=== PATIENT | female | born 1980 | race Two or more races ===

== ENCOUNTER 2016-10-17 05:49 | Inpatient (IN) | payer SELFPAY ==
[~2016-10-17] VITALS: Ht 160 cm; Wt 84.4 kg
[2016-10-17] MEDS ORDERED: FENTANYL PF 100 MCG/2 ML VIAL. IV PRN (06:15)
[2016-10-17] MEDS ORDERED: ONDANSETRON PF 4 MG/2 ML VIAL. IV PRN (06:15)
[2016-10-17] MEDS ORDERED: 0.9 % SODIUM CHLORIDE 10 ML DISP.SYRIN. IV PRN ×2 (06:15→16:00)
[2016-10-17] MEDS ORDERED: TERBUTALINE 1 MG/ML VIAL. SQ PRN (06:15)
[2016-10-17] MEDS ORDERED: ACETAMINOPHEN 325 MG TABLET. PO PRN ×2 (06:15→16:00)
[2016-10-17] MEDS ORDERED: LIDOCAINE 1% PF 30 ML VIAL. INJ PRN (06:15)
[2016-10-17] MEDS ORDERED: BUTORPHANOL 2 MG/ML VIAL. IV PRN (06:15)
[2016-10-17] MEDS ORDERED: OXYTOCIN 30 UNIT/500 ML PREMIX 500 ML IV PRN ×3 (06:15→16:00)
[2016-10-17] MEDS ORDERED: IBUPROFEN 600 MG TABLET. PO PRN (06:15)
[2016-10-17 07:15] LABS: BASO % 0 % (0-3); EOS % 1 % (0-3); HEMATOCRIT 36.8 % (36.0-47.0); LYMPH # 1.8 x10^3/uL (1.0-4.8); LYMPH % 21 % (24-48); MEAN CORPUSCULAR HEMOGLOBIN 30 pg (25-35); MEAN CORPUSCULAR HGB CONC 33 g/dL (31-37); MEAN CORPUSCULAR VOLUME 92 fL (79-100); MONO % 6 % (0-9); NEUT % 72 % (31-73); PLATELET COUNT 209 x10^3/uL (140-400); RED CELL DISTRIBUTION WIDTH 14.6 % (11.5-14.5); WHITE BLOOD COUNT 8.7 x10^3/uL (4.0-11.0)
[2016-10-17] MEDS ORDERED: PNV1TABL25 PO (08:05)
[2016-10-17] MEDS: IV RINGERS,LACTATED 1000ML 1,000 ML IV SCH ×2 (08:06→14:28)
[2016-10-17 09:53] LABS: % EOS 1 % (0-5)
[2016-10-17 09:54] LABS: PLT ESTIMATE ADEQUATE (ADEQUATE)
--- NOTE | 2016-10-17 15:46 | PDOC ---
VAGINAL DELIVERY DATE DATE: 10/17/16 TIME: 15:44 : 5 Para: 5 EGA: 39 VAGINAL DELIVERY: VTX VACCUM ASSISTED: No PLACENTA: Spontaneous 04/01 SEX: Male WEIGHT Weight [3140 gm ] Nuchal Cord: No Amniotic Fluid: Clear PAIN: Natural EPISIOTOMY: No EXTENSION: No EBL 500 ml COMPLICATIONS placental abruption 10% CONDITION pt. stable Signs of Intrauterine Infectio: None Shoulder Dystocia: No Problems: OBED MENDEZ Jr, MD Oct 17, 2016 15:46
[2016-10-17] MEDS ORDERED: HYDROCORTISONE 1% TOPICAL OINTMENT 30GM TUBE. TP PRN (16:00)
[2016-10-17] MEDS ORDERED: DIPHENHYDRAMINE HCL 25 MG CAPSULE PO PRN (16:00)
[2016-10-17] MEDS ORDERED: ZOLPIDEM 5 MG TABLET. PO PRN (16:00)
[2016-10-17] MEDS ORDERED: PHENYLEPH/MINERAL OIL/PETROLAT RECTAL OINTMENT 28GM TUBE. RC PRN (16:00)
[2016-10-17] MEDS ORDERED: SIMETHICONE 80 MG TAB.CHEW PO PRN (16:00)
[2016-10-17] MEDS ORDERED: MAG HYDROX/ALUMINUM HYD/SIMETH 30 ML ORAL.SUSP PO PRN (16:00)
[2016-10-17] MEDS ORDERED: DOCUSATE SODIUM 100 MG CAPSULE. PO PRN (16:00)
[2016-10-17] MEDS ORDERED: OXYCODONE/APAP 5/325 TABLET. PO PRN (16:00)
[2016-10-17] MEDS ORDERED: MMR per PROTOCOL. MC PRN (16:00)
[2016-10-17] MEDS ORDERED: MAGNESIUM HYDROXIDE 2,400 MG/30 ML ORAL.SUSP. PO PRN (16:00)
[2016-10-17] MEDS ORDERED: BENZOCAINE 20% TOPICAL AEROSOL SPRAY 57GM CAN. TP PRN (16:00)
[2016-10-17] MEDS: IBUPROFEN 800 MG TABLET. PO PRN (18:34)
[2016-10-17 21:11] VITALS: BP 90/55
[2016-10-17 23:09] VITALS: BP 108/61
[2016-10-18 01:30] VITALS: BP 91/52
[2016-10-18] MEDS: IBUPROFEN 800 MG TABLET. PO PRN ×3 (05:01→23:18)
[2016-10-18 05:10] VITALS: BP 96/61
[2016-10-18 05:14] LABS: BASO % 0 % (0-3); EOS % 1 % (0-3); HEMATOCRIT 30.1 % (36.0-47.0); HEMOGLOBIN 9.9 g/dL (12.0-15.5); LYMPH # 2.6 x10^3/uL (1.0-4.8); LYMPH % 18 % (24-48); MEAN CORPUSCULAR HEMOGLOBIN 30 pg (25-35); MEAN CORPUSCULAR HGB CONC 33 g/dL (31-37); MEAN CORPUSCULAR VOLUME 91 fL (79-100); MONO % 7 % (0-9); NEUT % 75 % (31-73); PLATELET COUNT 187 x10^3/uL (140-400); RED CELL DISTRIBUTION WIDTH 14.6 % (11.5-14.5); WHITE BLOOD COUNT 14.9 x10^3/uL (4.0-11.0)
[2016-10-18] MEDS ORDERED: FERROUS SULFATE 325 MG TABLET PO SCH (08:00)
[2016-10-18 12:58] VITALS: BP 93/59
[2016-10-18 17:26] VITALS: BP 96/56
--- NOTE | 2016-10-18 20:01 | PDOC ---
Provider Note Provider Note No complaints VSS Uterus NTT FU in AM Vital Sign - Last 24 Hours 10/17/16 10/17/16 10/18/16 10/18/16 21:11 23:09 01:30 05:10 Temp 98.0 98.3 98.1 98.5 98.0 98.3 98.1 98.5 Pulse 70 72 70 72 Resp 20 20 20 20 B/P 90/55 108/61 91/52 96/61 O2 Delivery Room Air Room Air Room Air Room Air 10/18/16 10/18/16 12:58 17:26 Temp 98.7 98.3 98.7 98.3 Pulse 77 75 Resp 18 18 B/P 93/59 96/56 Pulse Ox 98 98 O2 Delivery Room Air Room Air PAULA VELA MD Oct 18, 2016 20:01
[2016-10-18 23:10] VITALS: BP 111/66
[2016-10-19 05:00] VITALS: BP 100/66
[2016-10-19] MEDS: IBUPROFEN 800 MG TABLET. PO PRN (09:02)
[2016-10-19 11:06] VITALS: BP 93/60
[2016-10-19 15:25] VITALS: BP 110/67
--- NOTE | 2016-10-19 18:18 | PDOC ---
OB Progress Note Date of Service 10/19/16 Time of Evaluation 1814 Notes Pt. feeling well. No complaints. Lab Laboratory Tests Test 10/18/16 04:55 White Blood Count 14.9x10^3/uL (4.0-11.0) Red Blood Count 3.30x10^6/uL (3.50-5.40) Hemoglobin 9.9g/dL (12.0-15.5) Hematocrit 30.1% (36.0-47.0) Mean Corpuscular Volume 91fL (79-100) Mean Corpuscular Hemoglobin 30pg (25-35) Mean Corpuscular Hemoglobin Concent 33g/dL (31-37) Red Cell Distribution Width 14.6% (11.5-14.5) Platelet Count 187x10^3/uL (140-400) Neutrophils (%) (Auto) 75% (31-73) Lymphocytes (%) (Auto) 18% (24-48) Monocytes (%) (Auto) 7% (0-9) Eosinophils (%) (Auto) 1% (0-3) Basophils (%) (Auto) 0% (0-3) Neutrophils # (Auto) 11.1x10^3uL (1.8-7.7) Lymphocytes # (Auto) 2.6x10^3/uL (1.0-4.8) Monocytes # (Auto) 1.0x10^3/uL (0.0-1.1) Eosinophils # (Auto) 0.1x10^3/uL (0.0-0.7) Basophils # (Auto) 0.0x10^3/uL (0.0-0.2) Medications Current Medications Sodium Chloride 3 ml 3 ml QSHIFT PRN IV AFTER MEDS AND BLOOD DRAWS; Start 10/17 at 06:15; Stop 10/18/16 at 07:56; Status DC Lactated Ringer's (Iv Lactated Ringers) 1,000 ml @ 125 mls/hr Q8H IV Last administered on 10/17/16 14:28; Start 10/17/16 at 06:15; Stop 10/18/16 at 07:56 ; Status DC Butorphanol Tartrate (Stadol) 2 mg PRN Q1HR PRN IV Severe labor pain Last administered on 10/17/16 15:57; Start 10/17/16 at 06:15; Stop 10/18/16 at 07:56 ; Status DC Fentanyl Citrate (Fentanyl 2ml Vial) 100 mcg PRN Q20MIN PRN IV Labor pain; Start 10/17/16 at 06:15; Stop 10/18/16 at 07:56; Status DC Acetaminophen (Tylenol) 650 mg PRN Q6HRS PRN PO MILD PAIN / TEMP; Start at 06:15 Ondansetron HCl (Zofran) 4 mg PRN Q4HRS PRN IV NAUSEA/VOMITING; Start 10/17/16 at 06:15; Stop 10/18/16 at 07:56; Status DC Terbutaline Sulfate (Brethine) 0.25 mg 1X PRN PRN SQ SEE COMMENTS; Start at 06:15; Stop 10/18/16 at 06:14; Status DC Lidocaine HCl 30 ml 30 ml 1X PRN PRN INJ SEE COMMENTS; Start 10/17/16 at 06:15 ; Stop 10/18/16 at 07:56; Status DC Oxytocin/Sodium Chloride 500 ml @ 0 mls/hr CONT PRN IV SEE I/O RECORD Last administered on 10/17/16 08:07; Start 10/17/16 at 06:15; Stop 10/18/16 at 07:56 ; Status DC Oxytocin/Sodium Chloride (Oxytocin Premix Infusion) 500 ml @ 0 mls/hr CONT PRN PRN IV Post delivery bleeding Last administered on 10/17/16 15:59; Start at 06:15; Stop 10/18/16 at 07:56; Status DC Ibuprofen (Motrin) 600 mg PRN Q6HRS PRN PO PAIN; Start 10/17/16 at 06:15 Sodium Chloride 10 ml 10 ml QSHIFT PRN IV AFTER MEDS AND BLOOD DRAWS; Start at 16:00; Stop 10/18/16 at 07:56; Status DC Oxytocin/Sodium Chloride (Oxytocin Premix Infusion) 500 ml @ 62.5 mls/hr CONT PRN IV SEE I/O RECORD; Start 10/17/16 at 16:00; Stop 10/17/16 at 23:59; Status DC Acetaminophen (Tylenol) 650 mg PRN Q6HRS PRN PO MILD PAIN / TEMP; Start at 16:00 Ibuprofen (Motrin) 800 mg PRN Q8HRS PRN PO INFLAMMATION/PAIN PREVENTION Last administered on 10/19/16 09:02; Start 10/17/16 at 16:00 Docusate Sodium (Colace) 100 mg PRN BID PRN PO CONSTIPATION Last administered on 10/19/16 09:02; Start 10/17/16 at 16:00 Magnesium Hydroxide (Milk Of Magnesia) 2,400 mg PRN DAILY PRN PO CONSTIPATION; Start 10/17/16 at 16:00 Al Hydroxide/Mg Hydroxide (Mylanta Plus Xs) 30 ml PRN Q4HRS PRN PO HEARTBURN / GAS; Start 10/17/16 at 16:00 Simethicone (Gas-X) 80 mg PRN AFTMEALHC PRN PO GAS / BLOATING; Start 10/17/16 at 16:00 Diphenhydramine HCl (Benadryl) 25 mg PRN Q6HRS PRN PO ITCHING; Start 10/17/16 at 16:00 Benzocaine (Americaine) 1 spray PRN QID PRN TP TOPICAL PAIN; Start 10/17/16 at 16:00 Phenyleph/Shark Oil/Min Oil/Petrol (Preparation H) 1 galen PRN QID PRN RC RECTAL PAIN; Start 10/17/16 at 16:00 Hydrocortisone (Cortaid) 1 galen PRN QID PRN TP PERINEAL PAIN; Start 10/17/16 at 16:00 Ferrous Sulfate (Feosol) 325 mg BIDWMEALS PO ; Start 10/18/16 at 08:00; Stop at 12:28; Status DC Zolpidem Tartrate (Ambien) 5 mg PRN QHS PRN PO INSOMNIA, MAY REPEAT X1; Start 10/17/16 at 16:00 Info (Do NOT chart on this placeholder) 1 ea 1X PRN PRN MC SEE COMMENTS; Start 10/17/16 at 16:00; Stop 10/18/16 at 07:56; Status DC Info (Do NOT chart on this placeholder) 1 ea 1X PRN PRN MC SEE COMMENTS; Start 10/17/16 at 16:00; Stop 10/18/16 at 07:56; Status DC Oxycodone/ Acetaminophen (Percocet 5/325) 2 tab PRN Q4HRS PRN PO MODERATE PAIN , SEVERE PAIN; Start 10/17/16 at 16:00 Active Scripts Active Reported Tablet (Pnv Cmb#95/Ferrous Fumarate/Fa) 1 Each Tablet 1 Tab PO DAILY Exam Abd: soft, non tender, fundus firm Assessment PPD#2 s/p Plan of Care: See new orders (D/c home.) OBED MENDEZ Jr, MD Oct 19, 2016 18:17
--- NOTE | 2016-10-19 18:18 | DISCH ---
DISCHARGE INSTRUCTIONS Condition on Discharge Condition on Discharge: Stable Activity After Discharge Activity Instructions for Disc: Activity as tolerated Lifting Instructions after Dis: No heavy lifting Driving Instructions after Dis: Do not drive today Diet after Discharge Diet Texture: Regular Contacting the [facility] after DC Call your doctor for: Concerns you may have Follow-Up Follow up with: Tam in 6 weeks. OBED MENDEZ Jr, MD Oct 19, 2016 18:18
[2016-10-19 18:50] VITALS: BP 118/75
--- NOTE | 2016-10-20 12:51 | PATHOLOGY ---
PATHOLOGY REPORT * * * * * * * * FINAL DIAGNOSIS: Placenta: - Third trimester placenta, 521 grams. - Attached trivascular umbilical cord and membranes without significant inflammation. - Placental parenchyma with focal infarct, 0.7 cm. (ARIA:; d/t: 10/20/16) REPORT ELECTRONICALLY SIGNED BY: Louisa Luna M.D. DATE/TIME: 10/20/2016 12:50 * * * * * * * * GROSS PATHOLOGY: The specimen is received in formalin, labeled "Anshu Almanzar Naida" and additionally labeled "placenta with cord" on the requisition. Received is a 521 g, 18.3 x 17.5 x 3.8 cm discoid, echavarria placenta with attached umbilical cord and membranes. The umbilical cord measures 33.8 cm in length and 1.2 cm in average diameter. It is white-black, rubbery, trivascular, and has a paracentral insertion, 7.4 cm from the nearest placental margin. The helical twisting pattern is increased. No umbilical strictures or knots are grossly identified. The membranes are black, slightly thickened, translucent, and have a marginal insertion. The point of membrane rupture is 3.6 cm from the nearest placental margin. The surface is blue-koch with a normal vessel distribution and a minimal amount of subchorionic fibrin deposition. The maternal surface is grossly complete, with intact red-brown cotyledons, adherent blood clots, and minimal calcification. An abruption is not grossly identified. Sectioning reveals a 0.7 cm in greatest dimension yellow-black, poorly circumscribed, firm lesion, located in the peripheral portion of the placenta. The lesion encompasses less than 5% of the total volume of the placenta. The remaining parenchyma is dark red and spongy. Chemical Laboratory Technician sections are submitted as follows: A1 umbilical cord and surface vessels A2 membrane roll A3-A4 full-thickness sections of placenta (TTL; 10/19/2016) INITIAL CPT CODE(S): A; 53153 Professional services performed by [facility] at [address] [address] Technical services performed by [facility] at [address] [place] [address], [address], [place] [address]. SPECIMEN(S) RECEIVED: A.Placenta and cord CLINICAL HISTORY: Term IUP, vaginal delivery of 6lb 15 oz male @ 1521 on 3/27/17, apgars 9-9-9, small abruption, , EDC 10/23/16 PATIENT: NAIDA GOMEZ /AGE: 310/01/1980 (Age: 36) PATIENT #: [id number] ALT CASE #: SPECIMEN COLLECTION DATE: 10/17/2016 SPECIMEN RECEIVED DATE: 10/18/2016 [facility] - [address] [place] [address] - PHONE: [phone] * * * END OF REPORT * * *
== END 2016-10-19 19:05 | disposition home or self-care (01) | DRG 774 ==
LOC: 3 SO LND 05:49 → 3 NORTH 22:10
PROVIDERS: ADMIT Specialist; ATTEND Specialist
PROC: 10E0XZZ Delivery of Products of Conception, External Approach (ICD-10-PCS; principal; 2016-10-17)
DX: O45.93 Premature separation of placenta, unspecified, third trimester (principal); Z37.0 Single live birth; Z3A.39 39 weeks gestation of pregnancy; O09.523 Supervision of elderly multigravida, third trimester
CPT/HCPCS: 36415; 85007; 85027; 86593; 86850; 86900; 86901; J2590; J7120